=== PATIENT | male | born 1950 | race Caucasian/White ===

== ENCOUNTER 2024-08-23 21:17 | Emergency (ER) | payer OTHER ==
[~2024-08-23] VITALS: Ht 175.3 cm; Wt 73.0 kg
[~2024-08-23 21:17] MED LIST: AMIODARONE HCL 50MG/ML 3ML VIAL IV ONE
[2024-08-23 21:19] VITALS: BP 182/160; PULSE 67; RESP 12; O2SAT 73
== END 2024-08-23 21:37 ==
LOC: ER 21:17
DX: I46.9 Cardiac arrest, cause unspecified (principal); R05.9 Cough, unspecified; K74.60 Unspecified cirrhosis of liver; Z79.899 Other long term (current) drug therapy
CPT/HCPCS: 99285; 92950; 94070; 31500; 82962; J0282; J3490 ×3